=== PATIENT | female | born 1980 | race Caucasian/White ===

== ENCOUNTER 2016-06-15 17:24 | Emergency (ER) | payer OTHER ==
--- NOTE | 2016-06-15 18:15 | UCPHY ---
H & P Time Seen by Provider: 06/15/16 18:14 Patient Type: New HPI/ROS: HPI: 36-year-old female presents to urgent care with chief concern eye irritation and urinary burning or frequency. Eye irritation started in the past 2 days after she had her upper lids prominently tattooed with eye liner. Reports mild irritation in erythema of the lower lid and lower conjunctiva. Reports urinary burning or frequency that onset this morning. Denies fever, chills, visual changes, sensation of foreign body in her eye, pain with movement of her eye, photophobia, purulent discharge, periorbital swelling, nausea, vomiting, abdominal pain, vulvovaginal lesions, history of STI, unusual vaginal discharge, back or flank pain. ROS:10 point review of systems is negative other than as stated in HPI Physical Exam: Vital signs stable, reviewed by me HEENT: Unremarkable. Atraumatic. Visual Acuity: noted from Nurse's notes. Pupils:[equal round and reactive to light] [EOMI] Lids: [no edema or swelling] Skin: [no proptosis, no periorbital erythema, rash or swelling, no vesicles] Conjunctivae: [not injected, no discharge] Cornea: Very mild lower conjunctival injection bilaterally Anterior chamber:[normal, no hyphema or hypopyon] Neck: Supple, nontender, no lymphadenopathy Resp: Lungs CTA bilaterally. Breath sounds equal bilaterally. CV: HRR. S1S2. No MRG. ABD: Soft, nontender. Bowel sounds normoactive x 4 quadrants. : No CVA or flank tenderness. Extremities: Full ROM all extremities Neuro: Alert, oriented x 3. No focal deficits. Mental Status: Interactive, appropriate, well-groomed. Constitutional: Initial Vital Signs Temperature (C) 36.7 C 06/15/16 18:16 Heart Rate 76 06/15/16 18:16 Respiratory Rate 14 06/15/16 18:16 Blood Pressure 136/95 H 06/15/16 18:16 O2 Sat (%) 94 06/15/16 18:16 O2 Delivery Mode Room Air Allergies/Adverse Reactions: No Known Allergies Allergy (Unverified 06/15/16 18:16) Home Medications: Medication Instructions Recorded Cephalexin [Keflex (RX)] 500 mg PO TID #14 cap 06/15/16 Erythromycin 0.5% 1 conrad LEFTEYE HS #2 opht.oint 06/15/16 Gentamicin 0.3% [Gentak 0.3% Opht 2 drop EACHEYE QID #1 bottle 06/15/16 Drops (RX)] Medical Decision Making ED Course/Re-evaluation: Patient is afebrile. She is nontoxic. She has no eye pain. She has no pain with movement of the eye. I will place her prophylactically on antibiotic eye drops and antibiotic ointment at HS. I have counseled her regarding following up with Ophthalmology sit symptoms worsen over the next 1-2 days. Urinalysis is consistent with UTI. 15-25 WBCs, 1+ bacteria. Urinalysis was not able to be completed in its entirety as patient had used azo earlier today. Urine culture pending. She will be treated with twice daily Keflex. She has no fever, nausea, vomiting, back or flank pain. Differential Diagnosis: Differential diagnosis includes but is not limited to urinary tract infection including cystitis, pyelonephritis, conjunctivitis, lid infection - Data Points Laboratory Results: 06/15/16 18:05 Urine Color Pending Urine Appearance Pending Urine pH Pending Ur Specific [place] Pending Urine Protein Pending Urine Ketones Pending Urine Blood Pending Urine Nitrate Pending Urine Bilirubin Pending Urine Urobilinogen Pending Ur Leukocyte Esterase Pending Urine Glucose Pending Departure - Departure Disposition: Home, Routine, Self-Care Clinical Impression: Irritation of both eyes UTI (urinary tract infection) Qualifiers: Urinary tract infection type: acute cystitis Hematuria presence: without hematuria Qualifier Code: (N30.00) Acute cystitis without hematuria Condition: Good Instructions: Urinary Tract Infection in Women (ED) Additional Instructions: Plan: Keflex antibiotic as prescribed twice daily for 1 week, take with food Take an [id number] probiotic and/or eat yogurt while taking this antibiotic. Antibiotic Eye drops as prescribed for 5 days Eye ointment at bedtime as prescribed for 2 nights As discussed, if her symptoms worsen instead of improve over the next 2-3 days, follow up with [facility] listed in your paperwork Dr. Travis--When you call to schedule appointment, please let the office know you are an "ER follow up" appointment" Referrals: NONE *PRIMARY CARE P,. [Primary Care Provider] - As per Instructions Jeff Travis MD [Medical Doctor] - As per Instructions Prescriptions: Erythromycin 0.5% 1 conrad LEFTEYE HS #2 opht.oint Gentamicin 0.3% [Gentak 0.3% Opht Drops (RX)] 2 drop EACHEYE QID #1 bottle Cephalexin [Keflex (RX)] 500 mg PO TID #14 cap - PQRS PQRS Measurement: Not applicable
[2016-06-15 18:20] VITALS: BP 136/95; PULSE 76; RESP 14; TEMP 98.1; O2SAT 94
[2016-06-15 18:26] LABS: COLOR ORANGE; PH,URINE 6.5 (5.0-7.5)
[2016-06-15 18:32] LABS: RBC,URINE 0-1 /hpf (0-3); WBC,URINE 15-25 /hpf (0-3)
[2016-06-15 18:33] LABS: BACTERIA 1+ /hpf (NONE SEEN)
== END 2016-06-15 18:51 | disposition home or self-care (01) ==
LOC: CED 17:24
DX: H57.13 Ocular pain, bilateral (principal); N30.00 Acute cystitis without hematuria
CPT/HCPCS: 81003-PO; 81015-PO; 99203-PO; G0463-PO

== ENCOUNTER 2018-06-11 14:58 | Emergency (ER) | payer MEDICAID, OTHER ==
--- NOTE | 2018-06-11 16:03 | EDPHY ---
H & P Time Seen by Provider: 06/11/18 15:52 HPI/ROS: CHIEF COMPLAINT: Requesting Librium HISTORY OF PRESENT ILLNESS: 38-year-old female in the ER with her brother-in- law ala requesting prescription for Librium so she can detoxify over the weekend from alcohol. Denies suicidal homicidal ideation. Denies seizure. She had a prescription for Librium given to her approximately 1-2 months ago by her primary care provider which alleviated her initial withdrawal symptoms however she subsequently started drinking alcohol again. Denies seizure. Denies hallucination. PHYSICAL EXAM (Prior to examination, patient consented to physical exam, hands were washed and my usual and customary physical exam procedures followed) 1) GENERAL: Well-developed, well-nourished, alert and oriented. Tearful 2) HEAD: Normocephalic 3) HEENT: sclera anicteric 4) LUNGS: Breathing comfortably. 5) SKIN: No visible trauma 6) MUSCULOSKELETAL: Stable steady gait Smoking Status: Never smoked Constitutional: Initial Vital Signs Temperature (C) 36.8 C 06/11/18 15:00 Heart Rate 95 06/11/18 15:00 Respiratory Rate 18 06/11/18 15:00 Blood Pressure 151/100 H 06/11/18 15:00 O2 Sat (%) 96 06/11/18 15:00 O2 Delivery Mode Room Air Allergies/Adverse Reactions: No Known Allergies Allergy (Verified 06/11/18 15:01) Home Medications: Medication Instructions Recorded Lisinopril [Zestril 5 mg (*)] 5 mg PO 06/11/18 MDM/Departure - MDM Medications Given: Discontinued Medications Chlordiazepoxide (Librium 25 Mg Prepack#6) 1 btl TAKEERATH EDNOW ONE Stop: 06/11/18 16:08 Last Admin: 06/11/18 16:19 Dose: 1 btl ED Course/Re-evaluation: Patient has requested Librium to go home and detox on her own while a friend dispenses her Librium. She states that approximately 1 month ago she went or similar process where her primary care provider prescribed Librium and she felt better few days but subsequently started drinking again. Because the complexities and difficulties of self detoxing Librium I have recommended against this and declined prescription for Librium. She initially ordered [facility] however after lengthy discussion she agrees to go to the [facility]. Her friend will take her there. The Librium prepack will be sent separately. - Depart Disposition: Home, Routine, Self-Care Clinical Impression: Alcohol abuse Condition: Good Instructions: Chlordiazepoxide (By mouth), Abuse of Alcohol (ED) Referrals: [facility] [Outside] - As per Instructions
[2018-06-11] MEDS ORDERED: CHLORDIAZEPOXIDE 25MG PREPK#6 BTL TAKEHOME ONE (16:07)
[2018-06-11 16:29] VITALS: BP 152/91
== END 2018-06-11 16:29 | disposition home or self-care (01) ==
DX: F10.10 Alcohol abuse, uncomplicated (principal)